=== PATIENT | female | born 1965 | race African-American/Black ===

== ENCOUNTER 2018-03-20 01:03 | Emergency (ER) | payer OTHER ==
[2018-03-20] MEDS: ONDANSETRON (ODT) 4 MG TAB ODT (02:28)
[2018-03-20] MEDS: FENTAnyl 50 MCG/ML VIAL IV (04:22)
== END 2018-03-20 05:47 | disposition home or self-care (01) ==
LOC: E/R 01:03
DX: F10.129 Alcohol abuse with intoxication, unspecified (principal)
CPT/HCPCS: 99283; Z7502

== ENCOUNTER 2018-03-24 20:04 | Emergency (ER) | payer SELFPAY, OTHER | END 2018-03-24 22:57 | disposition left against medical advice (07) | LOC: FTE 20:04 | DX: Z53.21 Procedure and treatment not carried out due to patient leaving prior to being seen by health care provider (principal) ==

== ENCOUNTER 2018-10-03 23:01 | Emergency (ER) | payer OTHER ==
[2018-10-04] MEDS: KETOROLAC 15 MG INJ IM (06:42)
[2018-10-04] MEDS: DEXAMETHASONE 10 MG/ML 1 ML INJ IM (06:42)
== END 2018-10-04 07:42 | disposition home or self-care (01) ==
LOC: E/R 23:01
DX: M79.671 Pain in right foot (principal); M79.672 Pain in left foot
CPT/HCPCS: 96372; 99284-25

== ENCOUNTER 2018-11-05 04:29 | Emergency (ER) | payer OTHER ==
[2018-11-05] MEDS: ONDANSETRON (ODT) 4 MG TAB ODT (05:36)
[2018-11-05] MEDS: FAMOTIDINE 20 MG TAB PO (05:37)
[2018-11-05] MEDS: KETOROLAC 30 MG INJ IM (05:39)
[2018-11-05] MEDS: morphine 4 MG/ML VIAL IM (05:39)
== END 2018-11-05 06:20 | disposition home or self-care (01) ==
LOC: FTE 04:29
DX: G89.29 Other chronic pain (principal); Z72.89 Other problems related to lifestyle
CPT/HCPCS: 96372; 99284-25

== ENCOUNTER 2018-11-10 21:25 | Emergency (ER) | payer OTHER ==
[2018-11-11] MEDS: GABAPENTIN 300 MG CAP PO (03:46)
== END 2018-11-11 05:06 | disposition home or self-care (01) ==
LOC: E/R 21:25
DX: G62.9 Polyneuropathy, unspecified (principal); F17.210 Nicotine dependence, cigarettes, uncomplicated; Z21 Asymptomatic human immunodeficiency virus [HIV] infection status
CPT/HCPCS: 99283; Z7610

== ENCOUNTER 2018-12-10 19:48 | Emergency (ER) | payer OTHER ==
[2018-12-10] MEDS: HYDROCODONE/APAP (5/325) TAB PO (21:03)
[2018-12-10] MEDS: FAMOTIDINE 20 MG TAB PO (21:03)
[2018-12-10] MEDS: KETOROLAC 30 MG INJ IM (21:03)
== END 2018-12-10 21:39 | disposition home or self-care (01) ==
LOC: FTE 19:48
DX: M54.42 Lumbago with sciatica, left side (principal); F17.210 Nicotine dependence, cigarettes, uncomplicated
CPT/HCPCS: 96372; 99284-25